=== PATIENT | female | born 1965 | race Caucasian/White ===

== ENCOUNTER 2018-04-11 18:01 | Inpatient (IN) | payer OTHER ==
[~2018-04-11] VITALS: Ht 167.6 cm; Wt 68.0 kg
[2018-04-11 18:06] VITALS: BP 154/88
[2018-04-11] MEDS ORDERED: [UNRECOGNIZED DRUG - OTHER] TOP (18:10)
[2018-04-11] MEDS ORDERED: IMITREX 50 MG T50 MG PO (18:11)
[2018-04-11] MEDS ORDERED: MOBIC7.5 MG PO (18:11)
[2018-04-11] MEDS ORDERED: CENTRUM SILVER1 EAC4 PO (18:11)
[2018-04-11] MEDS ORDERED: GLUCOSAMINE &1 EACH PO (18:12)
[2018-04-11] MEDS ORDERED: ACIDOPHILUS1 EAC4 PO (18:12)
[2018-04-11] MEDS ORDERED: FISH OIL 1,001000 M2 PO (18:12)
[2018-04-11] MEDS ORDERED: CALCIUM + D SO1 EACH PO (18:13)
[2018-04-11] MEDS ORDERED: ZINC50 M1 PO (18:14)
[2018-04-11] MEDS ORDERED: VITAMINC500 PO (18:14)
[2018-04-11 18:21] LABS: ABSOLUTE BASOPHILS 0.1 thou/uL (0.0-0.2); ABSOLUTE EOSINOPHILS 0.1 thou/uL (0.0-0.7); ABSOLUTE LYMPHOCYTES 2.7 thou/uL (0.8-5.3); ABSOLUTE MONOCYTES 0.5 thou/uL (0.0-1.2); ABSOLUTE NEUTROPHILS 4.9 thou/uL (1.6-8.1); BASOPHILS 1.2 %; EOSINOPHILS 1.3 %; HEMATOCRIT 43.9 % (37.0-47.0); HEMOGLOBIN 14.9 gm/dL (12.0-15.0); LYMPHOCYTES 32.8 %; MCHC 33.8 g/dL (28.0-37.0); MCV 97.5 fL (80.0-100.0); MPV 8.3 fl. (7.2-11.1); NUCLEATED RBCS 0 /100WBC; PLATELET COUNT* 248 thou/uL (150-400); POLYS 58.7 %; RBC 4.51 mil/uL (4.20-5.00); RDW-CV 12.6 % (10.5-14.5); WBC 8.3 thou/uL (4.0-11.0)
[2018-04-11 18:28] LABS: CALCIUM 8.8 mg/dL (8.5-10.1); CREATININE 0.9 mg/dL (0.6-1.3); POTASSIUM 3.6 mmol/L (3.5-5.1)
[2018-04-11 18:38] LABS: ALBUMIN 3.9 g/dL (3.4-5.0); MAGNESIUM 2.2 mg/dL (1.8-2.4); TOTAL BILIRUBIN 0.5 mg/dL (<0.1-1.0); TOTAL PROTEIN 7.4 g/dL (6.4-8.2); TROPONIN-I LEVEL 0.08 ng/mL (<0.06)
[2018-04-11 20:45] VITALS: BP 127/73
[2018-04-11 21:30] VITALS: BP 132/71
[2018-04-12] VITALS (13 sets, daily range): BP systolic 107–135; BP diastolic 57–83
--- NOTE | 2018-04-12 15:08 | 2DMMODE ---
[place] [address] 2 D/M-MODE ECHOCARDIOGRAM Name: FAB SHORT Room: [address] IN [facility]#: [id number] Admission: 04/11/18 Attend Phys: Lonny Ireland Discharge: Date of : 61 Date of Service: 04/12/18 1508 Report #: [id number] THIS REPORT FOR: //name// APPROVED REPORT Study performed: 04/12/2018 13:39:10 EXAM: Comprehensive 2D, Doppler, and color-flow Echocardiogram Patient Location: In-Patient Room #: [facility] Status: routine BSA: 1.78 HR: 75 bpm BP: 112/65 mmHg Rhythm: NSR Other Information Study Quality: Good Indications Chest Pain 2D Dimensions IVSd: 8.28 (7-11mm) LVOT Diam: 20.34 (18-24mm) LVDd: 43.02 mm PWd: 8.08 (7-11mm) Ascending Ao: 30.92 (22-36mm) LVDs: 23.40 (25-40mm) Aortic Root: 29.68 mm Volumes Left Atrial Volume (Systole) LA ESV Index: 21.40 mL/m2 Aortic Valve AoV Peak Connor.: 1.38 m/s AO Peak Gr.: 7.56 mmHg LVOT Max P.37 mmHg AO Mean Gr.: 4.06 mmHg LVOT Mean P.37 mmHg LVOT Max V: 1.16 m/s AO V2 VTI: 28.87 cm LVOT Mean V: 0.69 m/s ANA (VTI): 2.77 cm2 LVOT V1 VTI: 24.59 cm Mitral Valve E/A Ratio: 0.74 MV Decel. Time: 277.64 ms MV E Max Connor.: 0.66 m/[place] [address] 2 D/M-MODE ECHOCARDIOGRAM Name: FAB SHORT Room: [address] IN .R.#: [id number] Admission: 04/11/18 Attend Phys: Lonny Ireland Discharge: Date of : 61 Date of Service: 04/12/18 1508 Report #: [id number] PHT: 80.52 ms MVA (PHT): 2.73 cm2 TDI E/Lateral E': 5.50 E/Medial E': 8.25 Medial E' Connor.: 0.08 m/s Lateral E' Connor.: 0.12 m/s Pulmonary Valve PV Peak Connor.: 1.29 m/s PV Peak Gr.: 6.68 mmHg Left Ventricle The left ventricle is normal size. There is a focal area of apical akinesis. There is normal left ventricular wall thickness. Left ventricular systolic function is preserved. LVEF is 60-65%. Grade I - abnormal relaxation pattern. Right Ventricle The right ventricle is normal size. The right ventricular systolic function is normal. Atria The left atrium size is normal. The right atrium size is normal. Aortic Valve The aortic valve is normal in structure. No aortic regurgitation is present. There is no aortic valvular stenosis. Mitral Valve The mitral valve is normal in structure. There is no mitral valve regurgitation noted. No evidence of mitral valve stenosis. Tricuspid Valve The tricuspid valve is normal in structure. Unable to assess PA pressure. Trace tricuspid regurgitation. Pulmonic Valve The pulmonary valve is normal in structure. Trace pulmonic regurgitation. Great Vessels The aortic root is normal in size. IVC is normal in size and collapses >50% with inspiration[place] [address] 2 D/M-MODE ECHOCARDIOGRAM Name: FAB SHORT Room: [address] IN [facility]#: [id number] Admission: 04/11/18 Attend Phys: Lonny Ireland Discharge: Date of : 61 Date of Service: 04/12/18 1508 Report #: [id number] There is no pericardial effusion. <Conclusion> The left ventricle is normal size. There is normal left ventricular wall thickness. Left ventricular systolic function is preserved. LVEF is 60-65%. Grade I - abnormal relaxation pattern. There is a focal area of apical akinesis. IVC is normal in size and collapses >50% with inspiration. <ELECTRONICALLY SIGNED> By: Dhruv Terrazas MD, FACC 04/12/18 1508 1508 1508 Dhruv Terrazas MD, FACC /INF
--- NOTE | 2018-04-12 17:07 | CARD ---
[address] [address] CARDIAC CATH REPORT Name: FAB SHORT Room: [address] IN .R.#: [id number] Admission: 04/11/18 Attend Phys: Tara Smith Discharge: Date of : 61 Report #: [id number] THIS REPORT FOR: //name// APPROVED REPORT Study performed: 04/12/2018 14:36:41 Patient Details Patient Status: In-Patient Room #: 215 The patient is a 52 year-old female Event Personnel Dhruv Terrazas Construction Flagger, Jazmin Vann RN Explosive Ordnance Disposal Technician, Rob Alvarez (R) Monitor, Ad Doe Scrub, Annie Simon RTR Scrub Procedures Performed Right transradial approach, Left Heart Catheterization, Left Ventriculogram, Selective Right and Left Coronary Angiography Indication Non-STEMI (>12 hrs to = 24 hrs) Risk Factors None Procedure Narrative The patient was brought electively to the Cardiac Catheterization Laboratory and was prepped and draped in a sterile manner. The right wrist was infiltrated with 1% Lidocaine subcutaneous anesthesia. A 6fr Ultimum Sheath sheath was inserted into the right femoral artery. Coronary angiography was performed using coronary diagnostic catheters. The right coronary system was accessed and visualized with a Diagnostic JR4 catheter. The left coronary system was accessed and visualized with a Diagnostic JL4 catheter. The left ventricle was accessed and visualized with a Diagnostic Angled Pig catheter. Left ventricular/Aortic Valve gradient assessed via catheter pullback. Left ventriculogram was performed in 30 degree, MACIAS projection. Closure device was deployed with a Fr Mynx 6Fr/7Fr. The patient tolerated the procedure well and there were no complications associated with the procedure. Dose: 512 mGy Contrast Type and Amount: Omnipaque 95 [place] [address] CARDIAC CATH REPORT Name: FAB SHORT Room: [address] IN [facility].#: [id number] Admission: 04/11/18 Attend Phys: Tara Smith Discharge: Date of : 61 Report #: [id number] Coronary Angiography The patient's coronary anatomy is right dominant. Diagnostic Cath Left Main Normal and bifurcates into an LAD and circumflex system. LAD The proximal and mid portions appeared normal. There appears to be an area of disrupted flow in the distal LAD with reconstitution of the LAD apically suggesting dissection. Diagonal 1 Normal, large branched Circumflex Normal in the proximal mid and distal portion. OM1 Large branched and normal. Right Coronary Normal in the proximal mid and distal portion. R PDA Small in caliber with diffuse 50% narrowing through the proximal and mid vessel. RPLV Normal large in branch. Left Ventriculography The left ventricle is normal in size with contractility. The left ventricular ejection fraction is estimated to be 55-60%. Left ventricular wall motion abnormalities are present. There is a focal region of apical akinesis. Hemodynamics The aortic pressure is 119/65 mmHg with a mean of 74 mmHg. The left ventricular pressure is 129/5 mmHg with a mean of mmHg. The left ventricular end diastolic pressure is 18 mmHg. Conclusion 1. Two-vessel coronary artery disease as outlined above. 2. The culprit lesion appears to be involving the distal LAD. 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 3. Preserved left particular systolic function with apical wall motion abnormality is noted above. 4. Normal left ventricular end-diastolic pressure. Recommendations 1. Continue aggressive medical management. <ELECTRONICALLY SIGNED> By: Dhruv Terrazas MD, FACC 04/12/18 170 06 06[facility] Terrazas MD, FACC /INF
--- NOTE | 2018-04-12 17:09 | EKG ---
[place] [address] ELECTROCARDIOGRAM REPORT Name: FAB SHORT Room: [address] ADM IN M.R.#: [id number] Admission: 04/11/18 Attend Phys: Tara Smith Discharge: Date of : 61 Report #: [id number] THIS REPORT FOR: //name// [facility] ED Test Date: 2018-04-11 Test Time: 18:45:50 Pat Name: FAB SHORT Department: Room: [address] Gender: F Time Study Technologist: Graham : 1965 Requested By: Jaspreet Eugene Order Number: [id number] Quintin MD: Ted Tefsaye Measurements Intervals [place] Rate: 64 P: -32 CT: 129 QRS: 17 QRSD: 81 T: 62 QT: 401 QTc: 414 Interpretive Statements Sinus rhythm Low voltage, precordial leads No previous ECG available for comparison Electronically Signed On 04-12-2018 17:09:24 CDT by Ted Tesfaye [email or web address] <ELECTRONICALLY SIGNED> By: Ted Tesfaye MD, [facility] 04/12/18 1709 44 44 Ted eTsfaye MD, FACC /EPI
--- NOTE | 2018-04-12 17:09 | EKG ---
[place] [address] ELECTROCARDIOGRAM REPORT Name: FAB SHORT Room: [address] ADM IN .R.#: [id number] Admission: 04/11/18 Attend Phys: Tara Smith Discharge: Date of : 61 Report #: [id number] THIS REPORT FOR: //name// [facility] ED Test Date: 2018-04-11 Test Time: 18:05:48 Pat Name: FAB SHORT Department: Room: [facility] Gender: F Police Officer Booking: : 1965 Requested By: Jaspreet Eugene Order Number: [id number] MD: Ted Tesfaye Measurements Intervals [place] Rate: 66 P: -18 UT: 133 QRS: 25 QRSD: 80 T: 67 QT: 419 QTc: 439 Interpretive Statements Sinus rhythm ST elev, probable normal early repol pattern No previous ECG available for comparison Electronically Signed On 04-12-2018 17:09:18 CDT by Ted Tesfaye [email or web address] <ELECTRONICALLY SIGNED> By: Ted Tesfaye MD, [facility] 04/12/18 1709 04 04 Ted Tesfaye MD, FAC /EPI
--- NOTE | 2018-04-12 17:09 | EKG ---
[place] [address] ELECTROCARDIOGRAM REPORT Name: FAB SHORT Room: [address] ADM IN M.R.#: [id number] Admission: 04/11/18 Attend Phys: Tara Smith Discharge: Date of : 61 Report #: [id number] THIS REPORT FOR: //name// [facility] Test Date: 2018-04-12 Test Time: 00:47:37 Pat Name: FAB SHORT Department: Room: [address] Gender: F Dietist: SERVANDO : 1965 Requested By: Jaspreet Eugene Order Number: [id number] Quintin MD: Ted Tesfaye Measurements Intervals [place] Rate: 65 P: 43 VT: 152 QRS: 25 QRSD: 85 T: 43 QT: 427 QTc: 444 Interpretive Statements Sinus rhythm Low voltage, precordial leads No previous ECG available for comparison Electronically Signed On 04-12-2018 17:09:46 CDT by Ted Tesfaye [email or web address] <ELECTRONICALLY SIGNED> By: Ted Tesfaye MD, [facility] 04/12/18 1709 D: 1046 004 Ted Tesfaye MD, FACC /EPI
--- NOTE | 2018-04-12 17:10 | EKG ---
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: SERVANDO : 1965 Requested By: Jaspreet Eugene Order Number: [id number] Quintin MD: Ted Tesfaye Measurements Intervals [place] Rate: 63 P: 46 ND: 150 QRS: 27 QRSD: 84 T: 59 QT: 442 QTc: 453 Interpretive Statements Sinus rhythm Low voltage, precordial leads Baseline wander in lead(s) V3 No previous ECG available for comparison Electronically Signed On 04-12-2018 17:09:55 CDT by Ted Tesfaye [email or web address] <ELECTRONICALLY SIGNED> By: Ted Tesfaye MD, [facility] 04/12/18 1709 0633 2 Ted Tesfaye MD, FAC /EPI
[2018-04-13] VITALS: BP 125/66
[2018-04-13 04:00] VITALS: BP 134/62
[2018-04-13 08:00] VITALS: BP 150/71
[2018-04-13 12:34] VITALS: BP 128/70
[2018-04-13 14:04] VITALS: BP 128/70
[2018-04-13] MEDS ORDERED: PLAVIX 75 MG TA75 M1 PO (14:16)
[2018-04-13] MEDS ORDERED: LOPRESSOR50 PO (14:17)
[2018-04-13] MEDS ORDERED: ASPIR 8181 M1 PO (14:24)
--- NOTE | 2018-04-15 11:39 | CON ---
[facility] [address] [place] [address] CONSULTATION Name: FAB SHORT Room: [address]R.#: [id number] Admission: 04/11/18 Attend Phys: Tara Smith Discharge: 04/13/18 Date of : 61 Report #: [id number] THIS REPORT FOR: //name// CC: Rob Ireland INDICATION: Non-ST elevation myocardial infarction. HISTORY OF PRESENT ILLNESS: The patient is a very pleasant and healthy 52-year-old white female who noted the onset of muscular type precordial pain radiating to the left arm and neck yesterday at approximately 3:30 in the afternoon. The pain has been persistent. The patient presented to the hospital for further evaluation. EKG shows some very subtle ST elevation somewhat diffusely. Her initial troponin was mildly elevated at 0.08. Subsequent troponin was 3.24 and 2.93. The patient continued to have intermittent chest discomfort as well as nausea. She had a calcium score 3 years ago after an episode of chest pain that was 0. She denies any history of hypertension, dyslipidemia or diabetes. She is not a smoker. PAST MEDICAL HISTORY: Migraine headaches. PAST SURGICAL HISTORY: Tubal ligation. PHYSICAL EXAMINATION: VITAL SIGNS: Stable. Blood pressure 107/65, pulse 65 and regular. GENERAL: This is a pleasant lady who is in no distress. HEAD: Normocephalic, atraumatic. Extraocular muscles intact. NECK: No jugular venous distention or bruit. CHEST: Clear to auscultation. CARDIAC: Regular rhythm without gallop or murmur. ABDOMEN: Soft, nontender, positive bowel sounds. EXTREMITIES: Without edema. Peripheral pulses 2+, easily palpable. SKIN: Warm and dry. LABORATORY DATA: Labs and EKG as outlined above. IMPRESSION AND RECOMMENDATIONS: Chest pain with elevated troponin consistent with myocardial infarction. I suspect this is more likely a pericarditis. We will, however, proceed with cardiac catheterization to evaluate for possible acute coronary occlusion. If the patient's coronary arteries appear relatively unremarkable, would suggest this is pericarditis with some muscular involvement. Further treatment will be pending the results of angiography. <ELECTRONICALLY SIGNED> By: Dhruv Terrazas MD, FACC 04/15/18 1139 1147 1315[facility] Center[facility]essee Terrazas MD, FACC /nt
== END 2018-04-13 15:42 | disposition home or self-care (01) | DRG 282 ==
LOC: M.ERS 18:01 → M.TBA-ER 19:26 → M.2W 19:26
PROVIDERS: Emergency Medicine Emergency Medical Services; ADMIT Internal Medicine
PROC: 4A023N7 Measurement of Cardiac Sampling and Pressure, Left Heart, Percutaneous Approach (ICD-10-PCS; principal; 2018-04-12)
PROC: B2111ZZ Fluoroscopy of Multiple Coronary Arteries using Low Osmolar Contrast (ICD-10-PCS; principal; 2018-04-12)
PROC: B2151ZZ Fluoroscopy of Left Heart using Low Osmolar Contrast (ICD-10-PCS; principal; 2018-04-12)
DX: I21.4 Non-ST elevation (NSTEMI) myocardial infarction (principal); G43.909 Migraine, unspecified, not intractable, without status migrainosus; I25.10 Atherosclerotic heart disease of native coronary artery without angina pectoris; F41.9 Anxiety disorder, unspecified; Z79.82 Long term (current) use of aspirin; Z79.899 Other long term (current) drug therapy

== ENCOUNTER 2018-04-17 10:22 | Inpatient (IN) | payer OTHER ==
[~2018-04-17] VITALS: Ht 167.6 cm; Wt 67.6 kg
[~2018-04-17 10:22] MED LIST: ACIDOPHILUS1 EAC4 PO; ASPIR 8181 M1 PO; CALCIUM + D SO1 EACH PO; CENTRUM SILVER1 EAC4 PO; FISH OIL 1,001000 M2 PO; GLUCOSAMINE &1 EACH PO; IMITREX 50 MG T50 MG PO; LOPRESSOR50 PO; MOBIC7.5 MG PO; PLAVIX 75 MG TA75 M1 PO; VITAMINC500 PO; ZINC50 M1 PO; [UNRECOGNIZED DRUG - OTHER] TOP
[2018-04-17 10:25] VITALS: BP 142/72
[2018-04-17 11:00] LABS: ABSOLUTE BASOPHILS 0.1 thou/uL (0.0-0.2); ABSOLUTE EOSINOPHILS 0.1 thou/uL (0.0-0.7); ABSOLUTE LYMPHOCYTES 1.5 thou/uL (0.8-5.3); ABSOLUTE MONOCYTES 0.6 thou/uL (0.0-1.2); ABSOLUTE NEUTROPHILS 7.5 thou/uL (1.6-8.1); BASOPHILS 0.7 %; EOSINOPHILS 0.9 %; HEMATOCRIT 42.5 % (37.0-47.0); HEMOGLOBIN 14.5 gm/dL (12.0-15.0); LYMPHOCYTES 15.3 %; MCH 33.2 pg (26.0-34.0); MCHC 34.2 g/dL (28.0-37.0); MCV 97.1 fL (80.0-100.0); MONOCYTES 5.9 %; MPV 8.6 fl. (7.2-11.1); NUCLEATED RBCS 0 /100WBC; PLATELET COUNT* 265 thou/uL (150-400); POLYS 77.2 %; RBC 4.38 mil/uL (4.20-5.00); RDW-CV 12.2 % (10.5-14.5); WBC 9.7 thou/uL (4.0-11.0)
[2018-04-17 11:12] LABS: ALBUMIN 3.5 g/dL (3.4-5.0); CALCIUM 9.7 mg/dL (8.5-10.1); MAGNESIUM 2.1 mg/dL (1.8-2.4); POTASSIUM 3.7 mmol/L (3.5-5.1); TOTAL BILIRUBIN 0.7 mg/dL (<0.1-1.0)
[2018-04-17 11:21] LABS: TROPONIN-I LEVEL 1.96 ng/mL (<0.06)
[2018-04-17 12:34] LABS: APTT 30.4 Seconds (25.0-31.3)
[2018-04-17] MEDS ORDERED: ULTRAM 50MG TAB50 MG PO (12:37)
--- NOTE | 2018-04-17 12:59 | NUR ---
REPORT TO AMBAR MARCELO ON 2EAST. PT TO CT VIA CART
[2018-04-17 13:20] VITALS: BP 137/99
[2018-04-17 13:45] VITALS: BP 138/70
--- NOTE | 2018-04-17 14:00 | NUR ---
PT. ARRIVED TO UNIT AT APPROX. 1320, PT. SPOUSE AT BEDSIDE. PT. AMBUALTED TO ROOM/BATHROOM WITH OUT DIFFICULTY. PT. IS A/OX4, VSS, MONITOR PLACED TRACING SR. DENIES CURRENT PAIN, BUT STATES SHE IS GETTING BACK THE SAME KIND OF "BURNING" AND ABD. "PRESSURE" THAT SHE HAD AT ARRIVAL. PT. DID REPORT NITRO DID HELP DOWNSTAIRS, ONE GIVEN ON THE FLOOR AT THIS TIME. PT. BP REMAINED WNL, AND PT.DID REPORT SOME RELIEF OVER TIME WITH NITRO. FULL ASSESSMENT AND ADMISSION PROCESS COMPLETED, REFER TO CHARTING. PT. TOLERATED LUNCH TRAY OF POTATOES AND ROAST BEEF WELL WITH NO NAUSEA. PT. ORIENTED TO ROOM, DENIES OTHER NEEDS AT THIS TIME. WILL CONTINUE WITH PLAN OF CARE.
[2018-04-17 16:00] VITALS: BP 120/58
--- NOTE | 2018-04-17 18:30 | NUR ---
PT. STABLE REMAINDER OF SHIFT. NO FURTHER COMPLAINTS OF BURNING. PT. TOLERATED DINNER OF CHICKEN SALAD WITHOUT ISSUE. IVF'S STARTED PER ORDERS. CONTINUES TO BE SR. ON MONITOR. HOURLY ROUNDING COMPLETED THROUGH OUT THE DAY FOR PT. SAFETY.
[2018-04-18] VITALS (8 sets, daily range): BP systolic 100–136; BP diastolic 50–64
--- NOTE | 2018-04-18 03:19 | NUR ---
PT ALERT ORIENTED. UP AD MARTA TO BR. PT DENIES PAIN. IVF NS AT 100MLS/HR. WILL CONTINUE TO MONITOR.
[2018-04-18 05:29] LABS: CHOLESTEROL 111 mg/dL (<200); HDL CHOLESTEROL 41 mg/dL (>40); LDL CHOLESTEROL 50 mg/dL (<100); TC:HDL 2.7 Ratio (Not establshd); TRIGLYCERIDE 100 mg/dL (<150); VLDL 20 mg/dL (<40)
[2018-04-18 05:30] LABS: SERUM ASSESSMENT CLEAR
[2018-04-18 05:32] LABS: TROPONIN-I LEVEL 2.11 ng/mL (<0.06)
--- NOTE | 2018-04-18 08:40 | NUR ---
ASSUMED CARE OF PT THIS AM AROUND 0715- ENTREPRENEUR IN PLACE ORDERED, TRACING SR- UPON ASSESSMENT PT NOTED TO BE AWAKE LAYING IN BED- PT A&O X4- CONTINENT OF BOWEL BLADDER- UP AD-MARTA WITH STEADY GAIT NOTED- LCTA, RESP EVEN AND UN-LABORED- VSS, O2 SAT 92% ON RA- ABDOMEN SOFT/ROUND/NON-TENDER, BS X4 QUADS- PT REPORTS FELLING ABD BLOATING/DISCOMFORT- IV NOTED TO RIGHT AC INTACT, IVF INFUSING PRESCIBED- GOOD PO INTAKE NOTED THIS AM WITH BREAKFAST- CALL LIGHT AND PERSONAL BELONGINGS WITH IN REACH- HOURLY ROUNDS IN PLACE R/T SAFETY/NEEDS- ALL NEEDS MET AT THIS TIME-WCTM
--- NOTE | 2018-04-18 09:58 | EKG ---
[place] [address] ELECTROCARDIOGRAM REPORT Name: FAB SHORT Room: [address] ADM IN [facility]#: [id number] Admission: 04/17/18 Attend Phys: Geovany Callejas MD, F Discharge: Date of : 61 Report #: [id number] THIS REPORT FOR: //name// [facility] ED Test Date: 2018-04-17 Test Time: 10:27:27 Pat Name: FAB SHORT Department: Room: [facility] Gender: F Tactical Air Control Party Manager: CINTIA : 1965 Requested By: Honey Dawson Order Number: [id number] MD: Geovany Callejas Measurements Intervals [place] Rate: 75 P: 31 HI: 134 QRS: 26 QRSD: 78 T: 68 QT: 371 QTc: 415 Interpretive Statements Sinus rhythm Low voltage, precordial leads Probable septal infarct, old Compared to ECG 04/12/2018 06:33:07 no change Electronically Signed On 04-18-2018 9:58:08 CDT by Geovany Callejas [email or web address] <ELECTRONICALLY SIGNED> By: Geovany Callejas MD, FACC 04/18/18 0958 1027 1027 Geovany Callejas MD, [facility] /EPI
--- NOTE | 2018-04-18 10:13 | EKG ---
[place] [address] ELECTROCARDIOGRAM REPORT Name: FAB SHORT Room: [address] ADM IN [facility].#: [id number] Admission: 04/17/18 Attend Phys: Geovany Callejas MD, F Discharge: Date of : 61 Report #: [id number] THIS REPORT FOR: //name// [facility] Test Date: 2018-04-18 Test Time: 08:52:07 Pat Name: FAB SHORT Department: Room: [facility] Gender: F Blood Tester Fowl: : 1965 Requested By: Geovany Callejas Order Number: [id number] Quintin MD: Geovany Callejas Measurements Intervals [place] Rate: 73 P: -22 TX: 130 QRS: 8 QRSD: 78 T: 67 QT: 383 QTc: 422 Interpretive Statements Sinus rhythm Low voltage, precordial leads Compared to ECG 04/17/2018 10:27:27 no change Electronically Signed On 04-18-2018 10:13:00 CDT by Geovany Callejas [email or web address] <ELECTRONICALLY SIGNED> By: Geovany Callejas MD, [facility] 04/18/18 1013 0852 0852 Geovany Callejas MD, [facility] /EPI
--- NOTE | 2018-04-18 11:30 | NUR ---
MET WITH PT AND SPOUSE, PT KNOWN FROM ADMIT LAST WEEK. PT LIVES WITH SPOUSE, IS INDEPENDENT AND ACTIVE. WORKS OUTSIDE THE HOME. SHE USES NO EQUIPMENT OR HOME CARE. STATES FEELING IMPROVED AND HOPEFUL TO GO HOME. NO DC NEEDS ID'D
[2018-04-18] MEDS ORDERED: NITROGLYCERIN0.4 MG SUBLING (16:42)
[2018-04-18] MEDS ORDERED: IBUPROFEN 200200 M1 PO (16:58)
--- NOTE | 2018-04-18 17:19 | NUR ---
ORDERS RECIEVIED THIS SHIFT PER FOR OKAY TO D/C HOME WITH F/U'S SCHEDULED- IV TO RIGHT AC D/C'D ALONG WITH FLIGHT KITCHEN MANAGER PRIOR TO D/C- D/C TEACHING/EDUCATION GIVEN TO PT PRIOR TO D/C WITH ALL QUESTIONS AND CONCERNS ADDRESSED PRIOR TO D/C- NEEDED F/U'S COMMUNICATED WITH VERBAL UNDERSTANDING RECIEVED PER PT- WRITTEN EDUCATION ALONG WITH SCRIPTS PROVIDED TO PT PRIOR TO D/C- BELONGINGS PACKED AND ACCOUNTED FOR PER PT- PT CURRENLTY DRESSED UP IN CHAIR EATING DINNER, AWAITING RIDE FOR D/C- ALL NEEDS MET AT THIS TIME- WCTM
--- NOTE | 2018-04-20 15:13 | SHORT ---
[address] [address] SHORT STAY SUMMARY Name: HANFAB BYNUM Room: [address] IN [facility].#: [id number] Admission: 04/17/18 Attend Phys: Geovany Callejas MD, F Discharge: 04/18/18 Date of : 61 Report #: [id number] THIS REPORT FOR: //name// CC: Rob Callejas DATE OF SERVICE: 04/18/2018 DISCHARGE DIAGNOSES: 1. Chest pain. 2. Coronary artery disease. 3. Migraine headaches. CONSULTANTS: None. PROCEDURES: None. 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 The patient presented a week previously with chest and arm pain. She is admitted to [facility] and ruled in for non-STEMI. Cardiac catheterization showed the apical LAD had a very narrow lumen and appeared to be completely occluded and filled faintly by bridging collaterals. Medical therapy is recommended. The vessel was too small for stenting. She was sent home on Plavix, metoprolol, aspirin and told to stop taking Imitrex, which she has been on for headaches. Since that time, the patient continues to have intermittent chest burning. She has had no bleeding. She also complained of abdominal fullness. On the day of admission, she had chest pain, came to the Emergency Room, was admitted for further evaluation and treatment. PAST MEDICAL HISTORY: Significant tubal ligation and tonsillectomy. No history of hypertension, diabetes or hyperlipidemia. MEDICATIONS: Include estrogen cream for menopause. PHYSICAL EXAMINATION: VITAL SIGNS: Blood pressure 140/70, pulse 70. CHEST: Clear to auscultation. CARDIOVASCULAR: Regular rate and rhythm. There was no rub noted. ABDOMEN: Soft. EXTREMITIES: Had no edema. RADIOLOGICAL DATA: ECG, sinus rhythm, septal Q-waves, no significant ST or T-wave changes. Chest x-ray, normal heart size, [place] [address] SHORT STAY SUMMARY Name: FAB SHORT Room: [address]#: [id number] Admission: 04/17/18 Attend Phys: Geovany Callejas MD, F Discharge: 04/18/18 Date of : 61 Report #: [id number] LABORATORY DATA: Sodium 140, creatinine 1.0. Liver function studies were normal. Her blood sugar was 103. Troponin on arrival was 1.96, it then increased to 2.19, on discharge it was 2.11. Cholesterol is 111, triglyceride 100, HDL 41, LDL 50. HOSPITAL COURSE: The patient was felt to have an occluded apical LAD. No further intervention was recommended. No rub was heard. There is concern that some of her chest pain may represent pericarditis. She was therefore started on ibuprofen 400 mg twice a day. She could not tolerate the metoprolol, which causes nausea, I discontinued the metoprolol. I also suggested she discontinue the aspirin and just take Plavix 75 mg a day. She was given nitroglycerin to take as needed for chest pain. At the time of discharge, she is ambulating, had no further complaints. She had a blood pressure 130/60, pulse 70. She was discharged to return to care of Dr. Pearce for routine medical care. She is given a return to work in 3 days. She will see my nurse practitioner next month. Dr. Terrazas planned to see her in May. She does plan to enroll in cardiac rehabilitation. She is felt to have a good prognosis from cardiac standpoint. It was felt reasonable that she continue the estrogen cream for postmenopausal symptoms. The results were discussed with the patient. It was felt she most likely had dissected the apical LAD, which occluded. No intervention was recommended. Fortunately, there is no significant other atherosclerosis noted. I did recommend she start exercise program and continue the low-fat diet. <ELECTRONICALLY SIGNED> By: Geovany Callejas MD, FACC 04/20/18 1513 1653 1739Geovany Callejas MD, FACC /nt
--- NOTE | 2018-04-20 15:13 | H ---
[place] [address] HISTORY AND PHYSICAL Name: [facility] SHORT Room: [address] IN [facility].#: [id number] Admission: 04/17/18 Attend Phys: Geovany Callejas MD, F Discharge: 04/18/18 Date of : 61 Report #: [id number] THIS REPORT FOR: //name// CC: Rob Callejas DATE OF SERVICE: 04/17/2018 HISTORY OF PRESENT ILLNESS: The patient is a 52-year-old white female who I was asked to see in the Emergency Room today after she complained of chest pain. The patient initially presented a week ago. She was at work when she felt a pain in her chest, went in her arm and jaw. She came to [place] and admitted. She was seen by my partner, Dr. Terrazas. She ruled in for non-STEMI. He performed a cardiac catheterization a week ago that showed that the apical LAD was a very narrow small artery that appeared to be completely occluded and filled faintly by bridging collaterals. There was no significant disease to circumflex or right coronary artery. It was recommended she be treated medically. She was sent home on Plavix, metoprolol, aspirin and told to quit taking Imitrex, which he had been on for migraine headaches. Since that time, she continues to have intermittent chest burning. She has had no bleeding. Yesterday, she actually called the office complaining of abdominal fullness and was told to stop taking the metoprolol. Today, she again had some chest discomfort. She came to the Emergency Room. She is being admitted at this time. She denies any shortness of breath, diaphoresis, nausea, vomiting, fever, or syncope. PAST MEDICAL HISTORY: Significant for tubal ligation and tonsillectomy. No history of hypertension, diabetes, hyperlipidemia. OTHER MEDICATIONS: Include estrogen cream for menopause. ALLERGIES: She has no known drug allergies. FAMILY HISTORY: Her mother and father had AFib. SOCIAL HISTORY: She is . She and her live in [place]. She is a schoolteacher, stays active working on treadmill. No smoking. Rarely drinks alcohol. REVIEW OF SYSTEMS: She has had no history of stroke, asthma, peptic ulcer disease, liver disease, kidney disease, cancer, psychiatric illness, chronic skin condition. PHYSICAL EXAMINATION: GENERAL: Revealed a middle-aged female, appeared in no distress. VITAL SIGNS: Showed a blood pressure of 140/70, pulse 70. [place] [address] HISTORY AND PHYSICAL Name: FAB SHORT Room: [address]#: [id number] Admission: 04/17/18 Attend Phys: Geovany Callejas MD, F Discharge: 04/18/18 Date of : 61 Report #: [id number] HEENT: She is anicteric, conjunctiva pink. Mucous members moist. NECK: Veins nondistended. No carotid bruits. CHEST: Clear to auscultation. CARDIAC: Regular rate and rhythm, without rub. ABDOMEN: Soft, nontender. EXTREMITIES: Had no edema. SKIN: Cool and dry. NEUROLOGIC: Nonfocal. LYMPH: No adenopathy. MUSCULOSKELETAL: No joint effusions. LABORATORY DATA: Her ECG on admission showed a sinus rhythm, septal Q-waves, no significant ST or T-wave change. Her workup, she actually had a chest x-ray today that showed normal heart size, clear lung byrne. She had an echocardiogram last week that showed ejection fraction of 60%, apical akinesia. Her lab work, sodium 140, creatinine 1.0. Liver function studies are normal. Troponin when the patient first arrived this morning was 1.96, is now 2.19, last week it peaked at 3.24. Last week, her white blood cell count was 9.7, hemoglobin 14.5. Unfortunately, no lipid profile was actually done. IMPRESSION AND RECOMMENDATIONS: 1. Recent [id number] myocardial infarction. Apical left anterior descending artery occluded. The patient cannot tolerate aspirin because of nausea. I would continue Plavix. She can also not tolerate a beta francoise. I would discontinue at this time. I cannot rule out spasm. I hear no rub to suggest pericarditis, although I would consider post-KS pericarditis. Would treat the patient with nonsteroidal anti-inflammatory medications. 2. History of migraine headaches. I would discontinue Imitrex. <ELECTRONICALLY SIGNED> By: Geovany Callejas MD, FACC 04/20/18 1513 [id number] Callejas MD, FACC /nt
== END 2018-04-18 17:50 | disposition home or self-care (01) | DRG 282 ==
LOC: M.ERS 10:22 → M.2W 12:20 → M.TBA-ER 12:20 → M.2W 13:16
PROVIDERS: Personal Emergency Response Attendant; ADMIT Internal Medicine Cardiovascular Disease
DX: I31.9 Disease of pericardium, unspecified (principal); I21.4 Non-ST elevation (NSTEMI) myocardial infarction; I25.10 Atherosclerotic heart disease of native coronary artery without angina pectoris; G43.909 Migraine, unspecified, not intractable, without status migrainosus; Z79.899 Other long term (current) drug therapy; Z79.82 Long term (current) use of aspirin; Z90.89 Acquired absence of other organs; Z82.49 Family history of ischemic heart disease and other diseases of the circulatory system

== ENCOUNTER → 2018-07-06 | Outpatient (CLI) | payer OTHER ==
[~2018-07-06] MED LIST changes: +IBUPROFEN 200200 M1 PO; +NITROGLYCERIN0.4 MG SUBLING; +ULTRAM 50MG TAB50 MG PO
== END ==
LOC: M.LAB 11:45
DX: R07.89 Other chest pain (principal)

== ENCOUNTER → 2019-03-03 | Outpatient (CLI) | payer OTHER | LOC: M.LAB 16:31 | DX: I25.10 Atherosclerotic heart disease of native coronary artery without angina pectoris (principal); R07.89 Other chest pain ==